=== PATIENT | male | born 1970 | race Caucasian/White ===

== ENCOUNTER 2017-12-24 16:24 | Emergency (ER) | payer MEDICAID ==
[~2017-12-24] VITALS: Ht 172.7 cm; Wt 100.0 kg
[2017-12-24] MEDS ORDERED: IBUPROFEN 800 MG TABLET PO ONE (17:45)
[2017-12-24] MEDS ORDERED: CARBAMIDE PEROXIDE 6.5% 15 ML OTIC SOLUTION AU ONE (17:45)
[2017-12-24] MEDS ORDERED: AMOXICILLIN TRIHYDRATE 250 MG CAPSULE PO ONE (18:30)
[2017-12-24 18:40] VITALS: BP 130/78
== END 2017-12-24 18:47 | disposition home or self-care (01) ==
LOC: EMS 16:25
DX: H61.23 Impacted cerumen, bilateral (principal); H66.93 Otitis media, unspecified, bilateral
CPT/HCPCS: 69209

== ENCOUNTER 2020-08-07 13:13 | Emergency (ER) | payer MEDICAID, OTHER ==
[~2020-08-07] VITALS: Ht 172.7 cm; Wt 72.7 kg
[2020-08-07] MEDS ORDERED: LORazepam 1 MG TABLET PO ONE (14:45)
[2020-08-07] MEDS ORDERED: HALOPERIDOL 5 MG TABLET PO ONE (14:45)
[2020-08-07 16:43] VITALS: BP 145/89
== END 2020-08-07 16:57 | disposition home or self-care (01) ==
LOC: EMS 13:16
DX: R45.851 Suicidal ideations (principal); F15.10 Other stimulant abuse, uncomplicated; Z59.0 Homelessness
CPT/HCPCS: 99284; Z7502; Z7610